=== PATIENT | female | born 1995 | race Caucasian/White ===

== ENCOUNTER → 2016-11-06 | Outpatient (CLI) | payer OTHER ==
[~2016-11-06] MED LIST: BCPILLS PO; DOXY100C PO; HYDR1CAP85 PO; OSEL75CA12 PO; SERT-234 PO
[2016-11-09 01:55] LABS: CHLAMYDIA TRACH RNA*** NOT DETECTED (NOT DETECTED); GC (NEIS GONORRHOEAE)RNA** NOT DETECTED (NOT DETECTED)
== END | disposition home or self-care (01) ==
LOC: C.LABSPEC 11:00
PROVIDERS: ATTEND Obstetrics & Gynecology
DX: Z01.419 Encounter for gynecological examination (general) (routine) without abnormal findings (principal)

== ENCOUNTER 2016-11-10 15:51 | Emergency (ER) | payer OTHER ==
[~2016-11-10] VITALS: Ht 157.5 cm; Wt 53.0 kg
[~2016-11-10 15:51] MED LIST changes: -DOXY100C PO; -HYDR1CAP85 PO; -OSEL75CA12 PO; -SERT-234 PO
[2016-11-10 15:59] VITALS: TEMP 37.1; Ht 157.5 cm; Wt 53.0 kg
[2016-11-10] MEDS ORDERED: SODIUM CHLORIDE 0.9% 1000ML 1,000 ML IV STA (16:43)
[2016-11-10] MEDS ORDERED: SODIUM CHLORIDE 0.9% 1000ML 1,000 ML IV ONE (16:43)
[2016-11-10 17:10] LABS: BASO % 0.4 %; BASO ABS # 0.03 K/uL (0-0.2); COMPLETE YES; EOS % 2.2 %; HEMATOCRIT 38.4 % (37-47); LYMPH % 18.3 %; LYMPH ABS # 1.24 K/uL (1.2-3.4); MEAN CELL VOLUME 86.3 fL (80-100); MEAN CORPUSCULAR HEMOGLOBIN 29.2 pg (25-34); MEAN CORPUSCULAR HGB CONC 33.9 g/dl (32-36); MEAN PLATELET VOLUME 10.6 fL (7.4-10.4); MONO % 8.2 %; NEUT % 70.9 %; PLATELET COUNT 164 K/uL (130-400); RED BLOOD COUNT 4.45 M/uL (4.2-5.4); WHITE BLOOD COUNT 6.79 K/uL (4.8-10.8)
[2016-11-10 17:15] LABS: URINE APPEARANCE CLOUDY (CLEAR); URINE BILIRUBIN NEG (NEG); URINE COLOR DK YELLOW; URINE EPITHELIAL CELL AUTO >30 /lpf (0-5); URINE NITRITE NEG (NEG); URINE PH 7.5 (4.5-7.5); URINE SPECIFIC GRAVITY 1.028 (1.000-1.030); UROBILINOGEN NEG (NEG)
[2016-11-10 17:17] LABS: MANUAL MICROSCOPIC REQUIRED? NO; REVIEW REQ? YES
[2016-11-10] MEDS ORDERED: HYDR1CAP85 PO (17:23)
[2016-11-10] MEDS ORDERED: SERT-234 PO (17:23)
[2016-11-10 17:28] LABS: URINE MUCUS PRESENT (NONE PRSENT)
[2016-11-10 17:44] LABS: BLOOD UREA NITROGEN 5 mg/dl (7-18); BUN/CREATININE RATIO 8.6 (10-20); CALCIUM 8.4 mg/dl (8.5-10.1); CARBON DIOXIDE 26 mmol/L (21-32); CHLORIDE 106 mmol/L (98-107); CREATININE 0.61 mg/dl (0.60-1.20); GLUCOSE 84 mg/dl (70-99); POTASSIUM 3.6 mmol/L (3.5-5.1); SODIUM 142 mmol/L (136-145)
[2016-11-10 17:47] LABS: ALKALINE PHOSPHATASE 76 U/L (45-117); ALT/SGPT 23 U/L (12-78); AST/SGOT 20 U/L (15-37)
--- NOTE | 2016-11-10 17:47 | DIAGNOSTIC IMAGING REPORT ---
CHEST ONE VIEW PORTABLE CLINICAL HISTORY: Chest pain. Fever. COMPARISON STUDY: No previous studies for comparison. FINDINGS: Lung volumes are normal. There is no pneumothorax or pleural effusion. Cardiac size is normal. Mediastinal contours are normal. There is no evidence of pulmonary edema. No consolidation is identified. IMPRESSION: No acute cardiopulmonary findings. Electronically signed by: Feroz Rodriguez M.D. 11/10/2016 5:45 PM Dictated Date/Time: 11/10/2016 5:45 PM
[2016-11-10] MEDS ORDERED: OSEL75CA12 PO (18:15)
[2016-11-10] MEDS ORDERED: OSELTAMIVIR PHOSPHATE 75 MG CAP PO STA (18:16)
[2016-11-10 18:31] VITALS: BP 117/78; PULSE 93; O2SAT 98
--- NOTE | 2016-11-10 20:32 | EMERGENCY ROOM VISIT NOTE ---
History Report prepared by Antwan: Glendy Peterson Under the Supervision of: Dr. Michele Estrella M.D. First contact with patient: 16:28 Chief Complaint: ILLNESS Stated Complaint: BRUISES ON LEGS,VOMITING,COUGH,CHEST/ARM PIT PAIN History of Present Illness The patient is a 21 year old female who presents to the Emergency Room with complaints of worsening illness that started 2 days ago. She states that she noticed bruising on her legs two days ago, which was accompanied with a fever, shortness of breath, and chest congestion. Over the last two days, some of the bruises have gotten darker and the fever has been intermittent with the highest recorded around 100. She denies any injuries to her legs. The patient is also experiencing an intermittent headache, generalized body aches, nausea, and one episode of vomiting but she denies abdominal pain. Additionally, she is experiencing substernal chest pain along with pain under her left axilla. She also reports intermittent productive coughing that is worse at night. The patient adds that she recently started medications for depression and anxiety. She denies recent suicidal ideation or thoughts of overdoses. The patient denies any chance of and states that her last normal menstrual period was one month ago. The patient lives with her boyfriend and he is not sick. Source of History: patient, spouse/significant other Onset: 2 days ago Position: other (generalized) Quality: other (illness) Timing: worsening Associated Symptoms: + SOB, + chest pain (substernal, under left axilla), + cough (intermittently productive), + fevers, + headache (intermittent), + nausea , + vomiting (one episode), No abdominal pain Note: chest congestion, bruises on bilateral legs, generalized body aches Review of Systems See HPI for pertinent positives & negatives. A total of 10 systems reviewed and were otherwise negative. Past Medical & Surgical Medical Problems: (1) No significant active problems Old medical records were reviewed. Nurse's notes were reviewed and I agree with. Family History Diabetes mellitus FHx: cancer FHx: heart disease Hypertension Social History Smoking Status: Current Every Day Smoker Drug Use: none Marital Status: in relationship Housing Status: lives with significant other Occupation Status: student Current/Historical Medications Scheduled Control Pills ( Control Pills), 1 TAB PO DAILY Oseltamivir (Tamiflu), 75 MG PO BID Sertraline (Zoloft), 100 MG PO QAM Scheduled PRN Hydroxyzine Pamoate (Vistaril), 15 MG PO TID PRN for PRN Allergies Coded Allergies: No Known Allergies (Verified , 11/10/16) Physical Exam Vital Signs Date Time Temp Pulse Resp B/P Pulse Ox O2 Delivery O2 Flow Rate FiO2 11/10/16 18:31 93 18 117/78 98 11/10/16 18:07 93 18 117/78 98 Room Air 11/10/16 15:59 37.1 104 18 129/78 97 Room Air Physical Exam General: Well developed well nourished non-ill appearing young female in no acute distress, breathing comfortably on room air. Normal speech HEENT: Normal cephalic atraumatic. Pupils are equal round and reactive to light. No photophobia. Extraocular movements are intact. TMs are obscured by serum bilaterally. Oropharynx is pink with moist mucous membranes. No swelling of the mouth lips or tongue. Neck: Supple with a midline trachea. No meningeal signs or stiffness, no JVD or bruits. No Stridor. Negative Kernig and Brudzinski signs. Chest: Clear to auscultation bilaterally. No wheezes or rhonchi. No increased work of breathing. Heart: regular rate and rhythm. Abdomen: Soft nontender, nondistended without rebound guarding or rigidity, no tenderness over the spleen. Extremities: Large bruises primarily on thighs that appear to be facing and several days old. 2+ distal pulses. No cyanosis clubbing or edema. No calf tenderness or assymetry Spine/Back. Non tender to palpation. No CVA tenderness Skin: Good turgor without rashes. Neurologic exam: Cranial nerves two through 12 are intact. Motor and sensation are intact and symmetrical throughout. Medical Decision & Procedures ER Provider Diagnostic Interpretation: X-ray results as stated below per interpretation by me and the radiologist: CHEST ONE VIEW PORTABLE IMPRESSION: No acute cardiopulmonary findings. Electronically signed by: Feroz Rodriguez M.D. 11/10/2016 5:45 PM Dictated Date/Time: 11/10/2016 5:45 PM Laboratory Results 11/10/16 17:00 Red Blood Count 4.45, Mean Corpuscular Volume 86.3, Mean Corpuscular Hemoglobin 29.2, Mean Corpuscular Hemoglobin Concent 33.9, Mean Platelet Volume 10.6, Neutrophils (%) (Auto) 70.9, Lymphocytes (%) (Auto) 18.3, Monocytes (%) (Auto) 8.2, Eosinophils (%) (Auto) 2.2, Basophils (%) (Auto) 0.4, Neutrophils # (Auto) 4.81, Lymphocytes # (Auto) 1.24, Monocytes # (Auto) 0.56, Eosinophils # (Auto) 0.15, Basophils # (Auto) 0.03 11/10/16 17:00 Test 11/10/16 17:00 11/10/16 17:05 11/10/16 17:20 White Blood Count 6.79 K/uL (4.8-10.8) Red Blood Count 4.45 M/uL (4.2-5.4) Hemoglobin 13.0 g/dL (12.0-16.0) Hematocrit 38.4 % (37-47) Mean Corpuscular Volume 86.3 fL (80-100) Mean Corpuscular Hemoglobin 29.2 pg (25-34) Mean Corpuscular Hemoglobin Concent 33.9 g/dl (32-36) Platelet Count 164 K/uL (130-400) Mean Platelet Volume 10.6 fL (7.4-10.4) Neutrophils (%) (Auto) 70.9 % Lymphocytes (%) (Auto) 18.3 % Monocytes (%) (Auto) 8.2 % Eosinophils (%) (Auto) 2.2 % Basophils (%) (Auto) 0.4 % Neutrophils # (Auto) 4.81 K/uL (1.4-6.5) Lymphocytes # (Auto) 1.24 K/uL (1.2-3.4) Monocytes # (Auto) 0.56 K/uL (0.11-0.59) Eosinophils # (Auto) 0.15 K/uL (0-0.5) Basophils # (Auto) 0.03 K/uL (0-0.2) RDW Standard Deviation 42.8 fL (36.4-46.3) RDW Coefficient of Variation 13.5 % (11.5-14.5) Immature Granulocyte % (Auto) 0.0 % Immature Granulocyte # (Auto) 0.00 K/uL (0.00-0.02) Urine Color DK YELLOW Urine Appearance CLOUDY (CLEAR) Urine pH 7.5 (4.5-7.5) Urine Specific [place] 1.028 (1.000-1.030) Urine Protein NEG (NEG) Urine Glucose (UA) NEG (NEG) Urine Ketones TRACE (NEG) Urine Occult Blood NEG (NEG) Urine Nitrite NEG (NEG) Urine Bilirubin NEG (NEG) Urine Urobilinogen NEG (NEG) Urine Leukocyte Esterase SMALL (NEG) Urine WBC (Auto) 5-10 /hpf (0-5) Urine RBC (Auto) 0-4 /hpf (0-4) Urine Hyaline Casts (Auto) 0 /lpf (0-5) Urine Epithelial Cells (Auto) >30 /lpf (0-5) Urine Bacteria (Auto) 2+ (NEG) Urine Pathogenic Casts /lpf (0) Urine Mucus PRESENT (NONE PRSENT) Urine Test NEG (NEG) Anion Gap 10.0 mmol/L (3-11) Est Creatinine Clear Calc Drug Dose 116.4 ml/min Estimated GFR () > 150.0 Estimated GFR (Non- 130.5 BUN/Creatinine Ratio 8.6 (10-20) Calcium Level 8.4 mg/dl (8.5-10.1) Total Bilirubin 0.1 mg/dl (0.2-1) Direct Bilirubin < 0.1 mg/dl (0-0.2) Aspartate Amino Transf (AST/SGOT) 20 U/L (15-37) Alanine Aminotransferase (ALT/SGPT) 23 U/L (12-78) Alkaline Phosphatase 76 U/L (45-117) Total Protein 7.1 gm/dl (6.4-8.2) Albumin 3.5 gm/dl (3.4-5.0) Lipase 208 U/L (73-393) Influenza Type A Antigen POS for Influ A (NEG) Influenza Type B Antigen Neg for Influ B (NEG) Monoscreen NEG (NEG) Laboratory studies as stated above per my review. Medications Administered Medications (Trade) Dose Ordered Sig/Teagan Route Start Time Stop Time Status Last Admin Dose Admin Sodium Chloride (Nss 1000ml) 1,000 ml @ 999 mls/hr Q1H1M STAT IV 11/10/16 16:43 11/10/16 17:43 DC 11/10/16 16:43 999 MLS/HR Oseltamivir Phosphate (Tamiflu Cap) 75 mg NOW STAT PO 11/10/16 18:16 11/10/16 18:17 DC 11/10/16 18:28 75 MG ED Course 163: Past medical records reviewed. The patient was evaluated in room A3, and a complete history and physical examination were performed. 164: Ordered Sodium Chloride 1000 ml @ 200 mls/hr IV, Sodium Chloride 1000 ml @ 999 mls/hr IV 174: I reassessed and updated the patient. 1811: Upon reevaluation, the patient is doing well. I discussed the results and treatment plan with her. She verbalized agreement of the treatment plan. The patient was discharged home. 1815: Ordered Tamiflu Cap 75 mg PO Medical Decision . Differentials include, but are not limited to; viral illness, influenza, HSP , meningococcemia, platelet disorder, trauma. This patient comes in as described above she has flulike symptoms. She's had a cough. She also has some bruises on her legs. She is nontoxic and non- lethargic. She looks well on exam. IV access established was hydrated with IV normal saline. Chest x-ray does not suggest congestive heart failure, pneumonia , or pneumothorax. She has normal blood work. She's no elevation of white count. Platelets are normal. She is not . She is normal kidney function. Her urinalysis looks normal with exception of being suboptimal due to greater than 30 epithelial cells. Her bruising appears to be more as aged bruises and does not look like purpura. I do not suspect meningococcemia or HSP. I told her to keep an eye on this. Her labs did come back positive for influenza. Her bruise may be unrelated to her influenza and. I will treat her with Tamiflu by mouth here as well as a prescription for twice a day for 5 days . She is to rest and drink plenty fluids return if: Worsening of symptoms , increasing problems with the bruises, pain, any new problems concerns. She is happy with plan and discharged to home. She should follow-up with her doctor 1-2 days for recheck Impression Primary Impression: Influenza A Additional Impression: Superficial bruising of lower leg Scribe Attestation The scribe's documentation has been prepared under my direction and personally reviewed by me in its entirety. I confirm that the note above accurately reflects all work, treatment, procedures, and medical decision making performed by me. Departure Information Dispostion Home / Self-Care Prescriptions Oseltamivir (Tamiflu) 75 Mg Cap 75 MG PO BID, #10 CAP Prov: Michele Estrella M.D. 11/10/16 Referrals No Doctor, Assigned (PCP) Forms HOME CARE DOCUMENTATION FORM, IMPORTANT VISIT INFORMATION, WORK / SCHOOL INSTRUCTIONS Patient Instructions A Signature Page, [employer] Additional Instructions Rest. Drink plenty of fluids. Use Tamiflu twice a day for 5 days Return if: Increasing pain, worsening of symptoms, worsening of the bruising, any new problems or concerns. Follow-up with her doctor for recheck in one to 2 days.
== END 2016-11-10 18:33 | disposition home or self-care (01) ==
LOC: C.EDB 15:52 → C.EDA 18:33
DX: J09.X2 Influenza due to identified novel influenza A virus with other respiratory manifestations (principal); S80.11XA Contusion of right lower leg, initial encounter; S80.12XA Contusion of left lower leg, initial encounter; F17.200 Nicotine dependence, unspecified, uncomplicated; X58.XXXA Exposure to other specified factors, initial encounter; Y92.89 Other specified places as the place of occurrence of the external cause; Y93.89 Activity, other specified; Y99.8 Other external cause status

== ENCOUNTER 2017-02-23 17:42 | Emergency (ER) | payer OTHER ==
[~2017-02-23] VITALS: Ht 154.9 cm; Wt 57.0 kg
[~2017-02-23 17:42] MED LIST changes: +HYDR1CAP85 PO; +OSEL75CA12 PO; +SERT-234 PO
[2017-02-23 17:56] VITALS: TEMP 37.3; Ht 154.9 cm; Wt 57.0 kg
[2017-02-23] MEDS ORDERED: SODIUM CHLORIDE 0.9% 1000ML 2,000 ML IV STA (18:07)
[2017-02-23] MEDS ORDERED: ACETAMINOPHEN 500 MG TAB PO STA (18:07)
--- NOTE | 2017-02-23 18:12 | EMERGENCY ROOM VISIT NOTE ---
History Report prepared by Antwan: Marcel Paige Under the Supervision of: Dr. Guicho Wu M.D. First contact with patient: 18:02 Chief Complaint: FEVER Stated Complaint: FEVER 103, BODY ACHES, HEADACHE History of Present Illness The patient is a 22 year old female who presents to the Emergency Room with complaints of a fever that began yesterday morning. She states that her temperature has been 103 degrees F. She is experiencing hot flashes, chills, body aches, headache, and body shaking. Last week, she noticed two ticks on her skin that she pulled off. She states that she does not have a rash. She denies any ear pain, cough, sore throat, vomiting, diarrhea, and abnormal urinary symptoms. She took ibuprofen 6 hours ago. She has had her influenza immunization. She denies any sick contacts. She states there is no chance for . Source of History: patient Onset: yesterday morning Position: other (global) Symptom Intensity: 103 F Quality: other (Fever) Timing: constant Associated Symptoms: + chills, + headache, No cough, No diarrhea, No rash, No sorethroat, No urinary symptoms, No vomiting Note: She has hot flashes and body aches. Review of Systems See HPI for pertinent positives & negatives. A total of 10 systems reviewed and were otherwise negative. Past Medical & Surgical Medical Problems: (1) No significant active problems Family History Diabetes mellitus FHx: cancer FHx: heart disease Hypertension Social History Smoking Status: Current Every Day Smoker Alcohol Use: occasionally Drug Use: none Marital Status: in relationship Housing Status: lives with significant other Occupation Status: student Current/Historical Medications Scheduled Control Pills ( Control Pills), 1 TAB PO DAILY Doxycycline Hyclate (Vibramycin), 100 MG PO BID Sertraline (Zoloft), 100 MG PO QAM Scheduled PRN Hydroxyzine Pamoate (Vistaril), 50 MG PO TID PRN for PRN Allergies Coded Allergies: No Known Allergies (Verified , 02/23/17) Physical Exam Vital Signs Date Time Temp Pulse Resp B/P Pulse Ox O2 Delivery O2 Flow Rate FiO2 02/23/17 17:56 37.3 125 18 129/73 98 Room Air Physical Exam GENERAL: Patient is in no acute distress. HEENT: No acute trauma, normocephalic atraumatic, mucous membranes moist, no nasal congestion, no scleral icterus. NECK: No stridor, no adenopathy, no meningismus, trachea is midline. LUNGS: Clear to auscultation bilaterally, no wheeze, no rhonchi, breath sounds equal. HEART: Tachycardic with a regular rhythm. No murmurs. ABDOMEN: Soft, nontender, bowel sounds positive, no hernias, no peritonitis. EXTREMITIES: No cyanosis or edema, full range of motion of all the joints without pain or difficulty, no signs for acute trauma. NEUROLOGIC: Oriented x 3, no acute motor or sensory deficits, no focal weakness. SKIN: No rash, no jaundice, no diaphoresis. Medical Decision & Procedures ER Provider Diagnostic Interpretation: X-ray results as stated below per interpretation by me and the radiologist: CHEST ONE VIEW PORTABLE HISTORY: Evaluate Fever/Sepsis COMPARISON: Chest 11/10/2016. FINDINGS: The lungs are clear. Cardiac silhouette is normal in size. No pleural effusions. No pneumothorax. IMPRESSION: No acute process. Electronically signed by: Robin Hirsch M.D. 02/23/2017 6:54 PM Dictated Date/Time: 02/23/2017 6:53 PM Laboratory Results 02/23/17 18:24 Red Blood Count 5.03, Mean Corpuscular Volume 86.5, Mean Corpuscular Hemoglobin 28.0, Mean Corpuscular Hemoglobin Concent 32.4, Mean Platelet Volume 10.4, Neutrophils (%) (Auto) 79.6, Lymphocytes (%) (Auto) 14.0, Monocytes (%) (Auto) 5.5, Eosinophils (%) (Auto) 0.3, Basophils (%) (Auto) 0.3, Neutrophils # (Auto) 2.90, Lymphocytes # (Auto) 0.51, Monocytes # (Auto) 0.20, Eosinophils # (Auto) 0.01, Basophils # (Auto) 0.01 02/23/17 18:24 Test 02/23/17 18:20 02/23/17 18:24 Influenza Type A Antigen Neg for Influ A (NEG) Influenza Type B Antigen Neg for Influ B (NEG) White Blood Count 3.64 K/uL (4.8-10.8) Red Blood Count 5.03 M/uL (4.2-5.4) Hemoglobin 14.1 g/dL (12.0-16.0) Hematocrit 43.5 % (37-47) Mean Corpuscular Volume 86.5 fL (80-100) Mean Corpuscular Hemoglobin 28.0 pg (25-34) Mean Corpuscular Hemoglobin Concent 32.4 g/dl (32-36) Platelet Count 117 K/uL (130-400) Mean Platelet Volume 10.4 fL (7.4-10.4) Neutrophils (%) (Auto) 79.6 % Lymphocytes (%) (Auto) 14.0 % Monocytes (%) (Auto) 5.5 % Eosinophils (%) (Auto) 0.3 % Basophils (%) (Auto) 0.3 % Neutrophils # (Auto) 2.90 K/uL (1.4-6.5) Lymphocytes # (Auto) 0.51 K/uL (1.2-3.4) Monocytes # (Auto) 0.20 K/uL (0.11-0.59) Eosinophils # (Auto) 0.01 K/uL (0-0.5) Basophils # (Auto) 0.01 K/uL (0-0.2) RDW Standard Deviation 47.2 fL (36.4-46.3) RDW Coefficient of Variation 14.8 % (11.5-14.5) Immature Granulocyte % (Auto) 0.3 % Immature Granulocyte # (Auto) 0.01 K/uL (0.00-0.02) Anion Gap 6.0 mmol/L (3-11) Est Creatinine Clear Calc Drug Dose 93.2 ml/min Estimated GFR () 138.7 Estimated GFR (Non- 119.7 BUN/Creatinine Ratio 9.3 (10-20) Lactic Acid Level 2.3 mmol/L (0.4-2.0) Calcium Level 9.0 mg/dl (8.5-10.1) Total Bilirubin 0.3 mg/dl (0.2-1) Aspartate Amino Transf (AST/SGOT) 52 U/L (15-37) Alanine Aminotransferase (ALT/SGPT) 52 U/L (12-78) Alkaline Phosphatase 74 U/L (45-117) Total Protein 7.5 gm/dl (6.4-8.2) Albumin 3.7 gm/dl (3.4-5.0) Globulin 3.8 gm/dl (2.5-4.0) Albumin/Globulin Ratio 1.0 (0.9-2) Laboratory results reviewed by me. Medications Administered Medications (Trade) Dose Ordered Sig/Teagan Route Start Time Stop Time Status Last Admin Dose Admin Sodium Chloride (Nss 1000ml) 2,000 ml @ 999 mls/hr Q2H1M STAT IV 02/23/17 18:07 02/23/17 20:07 02/23/17 18:07 999 MLS/HR Acetaminophen (Tylenol Tab) 1,000 mg NOW STAT PO 02/23/17 18:07 02/23/17 18:09 DC 02/23/17 18:16 1,000 MG Ceftriaxone Sodium (Rocephin Inj) 1 gm NOW STAT IV 02/23/17 19:18 02/23/17 19:19 DC 02/23/17 19:18 1 GM ED Course 1801: The patient was evaluated in room C1B. A complete history and physical exam was performed. 1806: Ordered Tylenol Tab 1000 mg PO, Sodium Chloride 2000 ml @ 999 mls/hr IV 1917: Ordered Rocephin Inj 1 gm IV 1929: Ordered Vibramycin Cap 100 mg PO 1944: Reevaluated the patient. Discussed results and discharge instructions: She verbalized understanding and agreement. The patient is ready for discharge. Medical Decision Differential diagnosis includes but is not limited to influenza, flu-like illness, dehydration, sepsis, UTI, pneumonia, cellulitis, and lyme disease. There is no leukocytosis, in fact the white count is slightly low. No concerning anemia. Platelet count is mildly low but certainly acceptable. No significant electrolyte abnormality, kidney failure or hepatitis. Blood cultures are pending. Lactic acid level is mildly elevated, likely consistent with dehydration. Chest x-ray does not show pneumonia or CHF. By exam, there was no cellulitis. Influenza testing was negative. The patient presents with body aches and fever. She has not had cough or congestion or sore throat. She did have some tick bites 1 week ago. Lyme disease as a cause for her presentation is certainly possible. The patient received IV saline, IV ceftriaxone and oral doxycycline. She was given oral Tylenol. I did explain that a viral illness could be the cause of her symptoms. However , given her history, she will be treated for the possibility of Lyme disease. The patient can return here if worsening and will follow with her doctors as an outpatient. I do not think Lyme disease testing will be helpful as she has only been sick for a short time and the tick bites were only within the last week. Impression Primary Impression: Fever Additional Impressions: Body aches Tick bite Scribe Attestation The scribe's documentation has been prepared under my direction and personally reviewed by me in its entirety. I confirm that the note above accurately reflects all work, treatment, procedures, and medical decision making performed by me. Departure Information Dispostion Home / Self-Care Prescriptions Doxycycline Hyclate (VIBRAMYCIN) 100 Mg Cap 100 MG PO BID for 28 Days, #56 CAP Prov: Guicho Wu M.D. 02/23/17 Referrals No Doctor, Assigned (PCP) Forms HOME CARE DOCUMENTATION FORM, IMPORTANT VISIT INFORMATION, School Instructions, Work Instructions Patient Instructions My [facility] Additional Instructions motrin or tylenol for pain lots of fluids and rest doxycycline 2x per day for 28 days have a lyme test in about 1 month return for worsening symptoms lab testing and imaging was ok today flu testing today was negative Problem Qualifiers
[2017-02-23 18:46] LABS: BASO % 0.3 %; BASO ABS # 0.01 K/uL (0-0.2); COMPLETE YES; EOS % 0.3 %; HEMATOCRIT 43.5 % (37-47); IG% 0.3 %; LYMPH ABS # 0.51 K/uL (1.2-3.4); MEAN CELL VOLUME 86.5 fL (80-100); MEAN CORPUSCULAR HGB CONC 32.4 g/dl (32-36); MEAN PLATELET VOLUME 10.4 fL (7.4-10.4); MONO % 5.5 %; NEUT % 79.6 %; PLATELET COUNT 117 K/uL (130-400); RED BLOOD COUNT 5.03 M/uL (4.2-5.4); WHITE BLOOD COUNT 3.64 K/uL (4.8-10.8)
--- NOTE | 2017-02-23 18:56 | DIAGNOSTIC IMAGING REPORT ---
CHEST ONE VIEW PORTABLE HISTORY: Evaluate Fever/Sepsis COMPARISON: Chest 11/10/2016. FINDINGS: The lungs are clear. Cardiac silhouette is normal in size. No pleural effusions. No pneumothorax. IMPRESSION: No acute process. Electronically signed by: Robin Hirsch M.D. 02/23/2017 6:54 PM Dictated Date/Time: 02/23/2017 6:53 PM
[2017-02-23 19:02] LABS: BUN/CREATININE RATIO 9.3 (10-20); CREATININE 0.72 mg/dl (0.60-1.20); POTASSIUM 3.9 mmol/L (3.5-5.1)
[2017-02-23] MEDS ORDERED: CEFTRIAXONE SOD INJ 1 GM ADDVIAL IV STA (19:18)
[2017-02-23] MEDS ORDERED: DOXYCYCLINE HYCLATE 100 MG CAP PO ONE (19:30)
[2017-02-23] MEDS ORDERED: DOXY100C PO (19:35)
[2017-02-23 19:55] VITALS: BP 119/73; PULSE 87; O2SAT 98
== END 2017-02-23 19:55 | disposition home or self-care (01) ==
LOC: C.EDB 17:43 → C.EDC 19:55
DX: R50.9 Fever, unspecified (principal); M79.1 Myalgia; Z87.898 Personal history of other specified conditions

== ENCOUNTER → 2017-11-12 | Outpatient (CLI) | payer OTHER ==
[~2017-11-12] MED LIST changes: -OSEL75CA12 PO
== END | disposition home or self-care (01) ==
LOC: C.LABSPEC 18:10
PROVIDERS: ATTEND Physician Assistant
DX: Z12.4 Encounter for screening for malignant neoplasm of cervix (principal)

== ENCOUNTER → 2017-11-12 | Outpatient (CLI) | payer OTHER | END | disposition home or self-care (01) | LOC: C.PAPS 09:12 | PROVIDERS: ATTEND Physician Assistant | DX: Z12.4 Encounter for screening for malignant neoplasm of cervix (principal) ==